=== PATIENT | male | born 1945 | race Caucasian/White ===

== ENCOUNTER 2017-02-26 07:37 | Emergency (ER) | payer MEDICARE, BC ==
[2017-02-26] MEDS ORDERED: PROSCAR5 M1 PO (07:55)
[2017-02-26] MEDS ORDERED: ASPIRIN EC81 MG PO (07:55)
[2017-02-26] MEDS ORDERED: FLOMAX0.4 M1 PO (07:55)
[2017-02-26 08:06] LABS: URINE BILIRUBIN NEGATIVE (NEG); URINE BLOOD MODERATE (NEG); URINE GLUCOSE (UA) NEGATIVE (NEG); URINE KETONE NEGATIVE (NEG); URINE LEUKOCYTE ESTERASE POSITIVE (NEG); URINE NITRITE POSITIVE (NEG); URINE PROTEIN SMALL (NEG); URINE SPECIFIC GRAVITY 1.005 (1.003-1.030)
[2017-02-26 08:07] LABS: URINE APPEARANCE CLOUDY; URINE COLOR PALE YELLOW
[2017-02-26 08:12] LABS: URINE BACTERIA 4+; URINE WBC 45-50 /[HPF] (0-5)
[2017-02-26 08:13] LABS: URINE EPITHELIAL CELLS 0-2 /[HPF] (0-10)
[2017-02-26] MEDS ORDERED: PYRIDIUM200 M2 PO (08:18)
[2017-02-26] MEDS ORDERED: AMOXICILLIN500 M2 PO (08:18)
[2017-02-26] MEDS ORDERED: COMPAZINE10 MG PO (08:19)
[2017-03-07] MEDS ORDERED: CHLORDIAZEPOXID25 M1 PO (14:04)
[2017-06-27] MEDS ORDERED: ACAMPROSATE CA333 M1 PO (08:21)
[2017-06-27] MEDS ORDERED: LEVAQUIN500 M1 PO (10:32)
[2017-06-27] MEDS ORDERED: KEFLEX500 M4 PO (10:32)
[2017-06-28] MEDS ORDERED: LEVAQUIN500 M1 PO (12:52)
[2017-06-28] MEDS ORDERED: KEFLEX500 M4 PO (12:53)
[2017-06-28] MEDS ORDERED: TYLENOL325 M2 PO (13:02)
[2017-06-29] MEDS ORDERED: CULTURELLE1 EAC2 PO (13:53)
[2017-06-29] MEDS ORDERED: [UNRECOGNIZED DRUG - REMARK] (14:00)
[2017-06-29] MEDS ORDERED: FLOMAX0.4 M1 PO (14:11)
== END 2017-02-26 08:55 ==
LOC: EDMED 07:37
PROVIDERS: Emergency Medicine
DX: N39.0 Urinary tract infection, site not specified (principal); F17.200 Nicotine dependence, unspecified, uncomplicated

== ENCOUNTER 2017-03-07 14:19 | Inpatient (IN) | payer MEDICARE, BC ==
[2017-03-07 11:13] LABS: URINE BILIRUBIN NEGATIVE (NEG); URINE BLOOD LARGE (NEG); URINE GLUCOSE (UA) NEGATIVE (NEG); URINE KETONE NEGATIVE (NEG); URINE LEUKOCYTE ESTERASE POSITIVE (NEG); URINE NITRITE POSITIVE (NEG); URINE PROTEIN MODERATE (NEG); URINE SPECIFIC GRAVITY 1.005 (1.003-1.030)
[2017-03-07 11:15] LABS: URINE COLOR YELLOW
[2017-03-07 11:16] LABS: URINE APPEARANCE HAZY
[2017-03-07 11:19] LABS: URINE WBC 80-100 /[HPF] (0-5)
[2017-03-07 11:20] LABS: URINE BACTERIA 3+; URINE EPITHELIAL CELLS 0-2 /[HPF] (0-10)
[2017-03-07 11:47] LABS: BASO % 0.2 % (0-2); EOS % 0.6 % (0-7); EOSINOPHIL ABSOLUTE COUNT 0.1 tho/cmm (0.0-0.7); HCT-HEMATOCRIT 46.9 % (36.0-53.5); HGB-HEMOGLOBIN 16.1 gm/dl (13.5-17.0); IMMATURE GRANULOCYTES ABSOLUTE 0.03 tho/cmm (0-0.03); IMMATURE GRANULOCYTES PERCENT 0.3 % (0-0.3); LYMPH % 8.5 % (20-45); LYMPH ABSOLUTE COUNT 0.9 tho/cmm (0.8-4.5); MCH (MEAN CORPUSCULAR HGB) 31.1 pg (28.0-32.0); MCHC MEAN CORPUSCULAR HGB CONC 34.3 % (32.0-36.0); MCV (MEAN CELL VOLUME) 90.7 fl (82.0-96.0); MONO % 7.3 % (0-12); MONOCYTE ABSOLUTE COUNT 0.8 tho/cmm (0.0-1.2); NEUTROPHIL ABSOLUTE COUNT 9.2 tho/cmm (1.6-8.0); NEUTROPHIL-AUTOMATED 9.2 tho/cmm (1.6-8.0); NEUTROPHILS % 83.1 % (40-80); PLATELET COUNT 113 tho/cmm (150-450); RED BLOOD COUNT 5.17 mil/cmm (4.40-5.70); RED CELL DISTRIBUTION WIDTH 13.2 % (12.4-16.4)
[2017-03-07 11:59] LABS: ANION GAP 10 mmol/L (0-20); BLOOD UREA NITROGEN 14 mg/dl (6-24); CALCIUM 8.9 mg/dl (8.5-10.5); CARBON DIOXIDE-VENOUS 27 mmol/L (22-32); CHLORIDE 107 mmol/l (96-110); CREATININE 1.23 mg/dl (0.60-1.30); GLUCOSE 108 mg/dL (70-110); SODIUM 140 mmol/L (135-145); eGFR VALUE FOR BLACK 69 mL/Min
[2017-03-07 12:09] LABS: POTASSIUM 4.1 mmol/L (3.7-5.1)
[~2017-03-07 14:19] MED LIST: AMOXICILLIN500 M2 PO; ASPIRIN EC81 MG PO; CHLORDIAZEPOXID25 M1 PO; COMPAZINE10 MG PO; FLOMAX0.4 M1 PO; PROSCAR5 M1 PO; PYRIDIUM200 M2 PO
[2017-03-08 06:00] LABS: BASO % 0.1 % (0-2); EOSINOPHIL ABSOLUTE COUNT 0.1 tho/cmm (0.0-0.7); HCT-HEMATOCRIT 45.1 % (36.0-53.5); IMMATURE GRANULOCYTES ABSOLUTE 0.03 tho/cmm (0-0.03); IMMATURE GRANULOCYTES PERCENT 0.3 % (0-0.3); LYMPH % 8.9 % (20-45); LYMPH ABSOLUTE COUNT 0.8 tho/cmm (0.8-4.5); MCH (MEAN CORPUSCULAR HGB) 30.9 pg (28.0-32.0); MCHC MEAN CORPUSCULAR HGB CONC 33.3 % (32.0-36.0); MCV (MEAN CELL VOLUME) 92.8 fl (82.0-96.0); MEAN PLATELET VOLUME 8.7 cmc (9.4-12.4); MONO % 10.8 % (0-12); NEUTROPHIL ABSOLUTE COUNT 7.3 tho/cmm (1.6-8.0); NEUTROPHIL-AUTOMATED 7.3 tho/cmm (1.6-8.0); NEUTROPHILS % 78.9 % (40-80); PLATELET COUNT 102 tho/cmm (150-450); RED BLOOD COUNT 4.86 mil/cmm (4.40-5.70); RED CELL DISTRIBUTION WIDTH 13.3 % (12.4-16.4); WHITE BLOOD COUNT 9.3 tho/cmm (4.0-10.0)
[2017-03-08 06:15] LABS: ALB/GLOB RATIO 0.9 (0.8-2.0); ALKALINE PHOSPHATASE 50 U/L (33-138); ALT/SGPT 16 U/L (12-78); ANION GAP 10 mmol/L (0-20); AST/SGOT 9 U/L (10-40); BILIRUBIN,DIRECT 0.1 mg/dl (0.0-0.3); BILIRUBIN,INDIRECT 0.2 mg/dL (0.0-1.0); BILIRUBIN,TOTAL 0.3 mg/dl (0.0-1.5); BLOOD UREA NITROGEN 13 mg/dl (6-24); CALCIUM 8.4 mg/dl (8.5-10.5); CARBON DIOXIDE-VENOUS 29 mmol/L (22-32); CHLORIDE 104 mmol/l (96-110); CREATININE 1.27 mg/dl (0.60-1.30); GLUCOSE 121 mg/dL (70-110); POTASSIUM 4.2 mmol/L (3.7-5.1); SODIUM 139 mmol/L (135-145); eGFR VALUE FOR BLACK 66 mL/Min
[2017-03-09] MEDS ORDERED: BACTRIM DS TAB1 EAC2 PO (12:25)
[2017-03-09] MEDS ORDERED: MIRALAX17 G2 PO (12:25)
[2017-06-27] MEDS ORDERED: ACAMPROSATE CA333 M1 PO (08:21)
[2017-06-27] MEDS ORDERED: LEVAQUIN500 M1 PO (10:32)
[2017-06-27] MEDS ORDERED: KEFLEX500 M4 PO (10:32)
[2017-06-28] MEDS ORDERED: LEVAQUIN500 M1 PO (12:52)
[2017-06-28] MEDS ORDERED: KEFLEX500 M4 PO (12:53)
[2017-06-28] MEDS ORDERED: TYLENOL325 M2 PO (13:02)
[2017-06-29] MEDS ORDERED: CULTURELLE1 EAC2 PO (13:53)
[2017-06-29] MEDS ORDERED: [UNRECOGNIZED DRUG - REMARK] (14:00)
[2017-06-29] MEDS ORDERED: FLOMAX0.4 M1 PO (14:11)
== END 2017-03-09 14:30 | DRG 690 ==
LOC: EDMED 14:19 → EMR2 16:24 → 5WE 19:00
PROVIDERS: Emergency Medicine; Internal Medicine Critical Care Medicine; ADMIT Hospitalist
DX: N30.01 Acute cystitis with hematuria (principal); D69.6 Thrombocytopenia, unspecified; K76.89 Other specified diseases of liver; N13.30 Unspecified hydronephrosis; N40.1 Benign prostatic hyperplasia with lower urinary tract symptoms; R33.8 Other retention of urine; R91.8 Other nonspecific abnormal finding of lung field; F17.200 Nicotine dependence, unspecified, uncomplicated; Z66 Do not resuscitate; Z91.048 Other nonmedicinal substance allergy status; Z79.82 Long term (current) use of aspirin; Z79.899 Other long term (current) drug therapy
CPT/HCPCS: G8978-GP-CI; G8979-GP-CH; J0696; J1650; J1956; J2270; J2405; J7030